=== PATIENT | female | born 1945 | race Caucasian/White ===

== ENCOUNTER → 2023-05-30 07:43 | Outpatient (REF) | payer MEDICARE, OTHER, SELFPAY ==
[2023-05-30 11:47] LABS: Urine Albumin Negative (Neg - Trace); Urine Bilirubin Negative (Negative); Urine Character Clear (Clear); Urine Color Yellow; Urine Glucose Negative (Negative); Urine Ketone Negative (Negative); Urine Leukocyte Trace (Negative); Urine Nitrite Negative (Negative); Urine Occult Blood 2+ (Negative); Urine Specific Gravity 1.015 (<1.030); Urine Urobilinogen Negative (Neg - 1+)
[2023-05-30 11:53] LABS: % Basophils 0.8 % (0-2); % Eosinophils 5.4 % (0-6); % Immature Granulocytes 0.2 % (0-0.5); % Monocytes 11.8 % (1.7-9.3); % Neutrophils 40.8 % (42.2-75.2); Absolute Eosinophils 0.3 10^3/uL (0-0.7); Absolute Lymphocytes 2.1 10^3/uL (1.2-3.4); Absolute Monocytes 0.6 10^3/uL (0.1-0.6); Absolute Neutrophils 2.1 10^3/uL (1.4-6.5); Hemoglobin 13.9 g/dL (12.0-16.0); Mean Corp Hgb Conc. 33.1 g/dL (33.0-37.0); Mean Corpuscular Hgb 29.7 pg (27.0-31.0); Mean Corpuscular Volume 89.7 fL (81.0-99.0); Nucleated Red Blood Cells % 0 %; Platelet Count 186 10^3/uL (130-400); Red Blood Cell Count 4.68 10^6/uL (4.20-5.40); Red Cell Dist. Width 13.8 % (11.5-14.5); White Blood Cell Count 5.2 10^3/uL (4.8-10.8)
[2023-05-30 11:57] LABS: Urine Squamous Cell 0-2 /LPF (Few)
[2023-05-30 11:59] LABS: Urine Red Blood Cell 0-2 /HPF (0-2); Urine White Cell 0-2 /HPF (0-5)
[2023-05-30 12:03] LABS: ALT (SGPT) 18 U/L (0-35); AST (SGOT) 27 U/L (14-36); Albumin 4.2 g/dl (3.5-5.0); Alkaline Phosphatase 74 U/L (38-126); Blood Urea Nitrogen 25 mg/dl (7-17); Calcium 9.4 mg/dl (8.4-10.2); Carbon Dioxide 30 mmol/L (22-30); Chloride 104 mmol/L (98-107); Creatine Phosphokinase 61 U/L (30-135); Glucose 95 mg/dl (70-99); HDL Cholesterol 76 mg/dl; LDL Cholesterol, Calculated 133 mg/dl; Potassium 4.1 mmol/L (3.5-5.1); Sodium 137 mmol/L (135-145); Total Cholesterol 235 mg/dl (50-199); Total Protein 6.7 g/dl (6.3-8.2); Triglyceride 131 mg/dl (10-149); Very Low Density Lipoprotein 26 mg/dl (0-30); eGFR > 60.00
[2023-05-30 12:09] LABS: Intact PTH 50.3 pg/ml (13.6-85.8)
[2023-05-30 12:16] LABS: Vitamin D, 25-OH*** 44.1 ng/mL (30-80)
[2023-05-30 12:19] LABS: Total Thyroxine 7.35 ug/dl (5.5-11.0)
[2023-05-30 12:29] LABS: TSH 2.07 uIU/ml (0.47-4.68)
== END ==
LOC: HWLAB 07:43
PROVIDERS: ATTENDING PHYSICIAN Internal Medicine
DX: I10 Essential (primary) hypertension (principal); E55.9 Vitamin D deficiency, unspecified; E83.52 Hypercalcemia; L65.9 Nonscarring hair loss, unspecified; R31.1 Benign essential microscopic hematuria; R53.83 Other fatigue; M79.10 Myalgia, unspecified site
CPT/HCPCS: 36415; 80053; 80061; 81003; 81015; 82306; 82550; 83970; 84436; 84443; 85025

== ENCOUNTER → 2023-07-14 12:17 | Outpatient (REF) | payer MEDICARE, OTHER, SELFPAY | LOC: HWRAD 12:17 | PROVIDERS: ATTENDING PHYSICIAN Internal Medicine Cardiovascular Disease; FAMILY PHYSICIAN Internal Medicine | DX: I10 Essential (primary) hypertension (principal); R42 Dizziness and giddiness; R09.89 Other specified symptoms and signs involving the circulatory and respiratory systems | CPT/HCPCS: 93880 ==

== ENCOUNTER → 2023-09-01 12:38 | Outpatient (REF) | payer MEDICARE, OTHER, SELFPAY | LOC: HWRCS 12:38 | PROVIDERS: ATTENDING PHYSICIAN Internal Medicine Cardiovascular Disease; FAMILY PHYSICIAN Nurse Practitioner Family | DX: I10 Essential (primary) hypertension (principal); R07.89 Other chest pain | CPT/HCPCS: 93306 ==

== ENCOUNTER → 2023-09-19 08:19 | Outpatient (REF) | payer MEDICARE, OTHER, SELFPAY | LOC: DHCBC/DCA 08:19 | PROVIDERS: ATTENDING PHYSICIAN Internal Medicine Cardiovascular Disease; FAMILY PHYSICIAN Internal Medicine | DX: I10 Essential (primary) hypertension (principal); R07.89 Other chest pain | CPT/HCPCS: 78452; 93017; A9500 ==

== ENCOUNTER → 2024-02-01 07:11 | Outpatient (REF) | payer MEDICARE, OTHER, SELFPAY ==
[2024-02-01 09:45] LABS: % Basophils 0.8 % (0-2); % Eosinophils 4.7 % (0-6); % Immature Granulocytes 0.3 % (0-0.5); % Lymphocytes 41.5 % (20.5-51.1); % Monocytes 8.4 % (1.7-9.3); % Neutrophils 44.3 % (42.2-75.2); Absolute Basophils 0.1 10^3/uL (0-0.2); Absolute Eosinophils 0.3 10^3/uL (0-0.7); Absolute Lymphocytes 2.7 10^3/uL (1.2-3.4); Absolute Monocytes 0.5 10^3/uL (0.1-0.6); Absolute Neutrophils 2.9 10^3/uL (1.4-6.5); Hematocrit 41.7 % (37.0-47.0); Hemoglobin 13.8 g/dL (12.0-16.0); Mean Corp Hgb Conc. 33.1 g/dL (33.0-37.0); Mean Corpuscular Hgb 29.9 pg (27.0-31.0); Mean Corpuscular Volume 90.3 fL (81.0-99.0); Mean Platelet Volume 11.4 fL (7.4-10.4); Nucleated Red Blood Cells % 0 %; Platelet Count 198 10^3/uL (130-400); Red Blood Cell Count 4.62 10^6/uL (4.20-5.40); Red Cell Dist. Width 14.1 % (11.5-14.5); White Blood Cell Count 6.4 10^3/uL (4.8-10.8)
[2024-02-01 11:12] LABS: ALT (SGPT) 21 U/L (0-35); AST (SGOT) 29 U/L (14-36); Albumin 4.6 g/dl (3.5-5.0); Alkaline Phosphatase 66 U/L (38-126); Blood Urea Nitrogen 27 mg/dl (7-17); Calcium 9.9 mg/dl (8.4-10.2); Carbon Dioxide 29 mmol/L (22-30); Chloride 103 mmol/L (98-107); Glucose 95 mg/dl (70-99); Iron 94 ug/dl (37-170); Sodium 141 mmol/L (135-145); Total Bilirubin 1.1 mg/dl (0.2-1.3); Total Protein 7.1 g/dl (6.3-8.2); eGFR 57.31
[2024-02-01 11:21] LABS: Percent Saturation 30 % (20-50); Total Iron Binding Capacity 312 ug/dl (265-497)
[2024-02-01 11:47] LABS: Ferritin 89.7 ng/ml (11.1-264.0)
[2024-02-02 15:57] LABS: Thyroglobulin Antibodies <0.9 IU/mL (0.0-4.0); Thyroid Peroxidase Ab (TPO) 0.3 IU/mL (0.0-9.0)
[2024-02-03 00:55] LABS: ANA, IgG Reflex to HEp-2 None Detected (None Detected)
== END ==
LOC: HWLAB 07:11
PROVIDERS: ATTENDING PHYSICIAN General Practice; FAMILY PHYSICIAN Internal Medicine
DX: L65.9 Nonscarring hair loss, unspecified (principal)
CPT/HCPCS: 36415; 80053; 82728; 83540; 83550; 84443; 85025; 86038; 86376; 86800